=== PATIENT | male | born 1980 | race Caucasian/White ===

== ENCOUNTER → 2024-04-06 16:22 | Outpatient (REF) | payer BC, SELFPAY | LOC: RAD 16:22 | PROVIDERS: ATTENDING PHYSICIAN Surgery; FAMILY PHYSICIAN Nurse Practitioner | DX: K43.2 Incisional hernia without obstruction or gangrene (principal) | CPT/HCPCS: 74177; Q9967 ==

== ENCOUNTER 2024-04-29 06:35 | Day surgery (SDC) | payer BC, SELFPAY ==
[2024-04-29] VITALS (7 sets, daily range): BP systolic 109–142; BP diastolic 65–96; BMI 30.7
[2024-04-29] MEDS: TYLENOL 1000 MG PO (12:37)
[2024-04-29] MEDS: NORMOSOL-R/PLASMALYTE-A 1000 IV (12:59)
[2024-04-29] MEDS: VANCOCIN 530 MG IV (13:06)
--- NOTE | 2024-04-29 15:18 | W.IMMPOSTOP ---
Surgical Immed Post Op Note
-
Primary Surgeon: Lillie
Assisting: John GRIFFITHS; Elsy MULATNI
Pre-op Diagnosis: Umbilcal and ventral incisional hernias
Post-op Diagnosis: Ventral incisional hernia, incarcerated
Procedure Performed: Robot assisted laparoscopic repair of incarcerated ventral incisional hernia (rTAPP)
Anesthesia Type: GETA + TAP block
Specimen / Cultures: None
Estimated Blood Loss: 10cc
Complications: None immediate
Operative Findings: 4cm x 2cm defect with thin fascial bridge intervening; 13cm x 13cm bard soft mesh
--- NOTE | 2024-04-29 15:20 | OR.RPT ---
Operative Report
Operative Report
Primary Surgeon: Lillie
Assisting: John GRIFFITHS; Elsy MULTANI
Pre-op Diagnosis: Umbilical and ventral incisional hernias
Post-op Diagnosis: Ventral incisional hernia, incarcerated
Procedure Performed: Robot assisted laparoscopic repair of incarcerated ventral incisional hernia (rTAPP)
Anesthesia Type: GETA + TAP block
Specimen / Cultures: None
Estimated Blood Loss: 10cc
Complications: None immediate
Operative Findings: 4cm x 2cm defect with thin fascial bridge intervening; 13cm x 13cm bard soft mesh
Date of surgery: 04/29/24
Indications:� This 43M developed a symptomatic incarcerated ventral incisional hernia near his umbilicus. Robot assisted laparoscopic repair was planned.
Description of procedure:� The patient was taken to the operating room and positioned into supine position. The patient�s abdomen was prepped and draped in standard sterile fashion. A time-out was completed verifying correct patient, procedure,
site, positioning, and implants and special equipment prior to beginning this procedure.� The hernia was partially manually reduced after induction. A stab incision was made in the left upper quadrant, a Veress needle was inserted and proper
position was confirmed by aspiration and saline drop test. Following this, pneumoperitoneum was created with insufflation of carbon dioxide to 12 mmHg. Then a 8mm robotic trocar was inserted at the left anterior axillary line at the level of the
umbilicus. The laparoscope was inserted and no injuries were identified in the area. Under direct visualization, the initial trocar was exposed and two 8mm trocars were placed a hand's breadth above and below the initial trocar under direct
visualization.
Attention was turned to the umbilical defect. The peritoneum was incised several cm superior to the defect and a peritoneal flap was developed in transverse and caudad directions using blunt and sharp dissection and judicious electrocautery. The
defect was identified and measured as above. Incarcerated fatty contents were reduced. The defect was closed with 0 PDS stratafix suture. A 13cm x 13cm bard soft mesh was passed into the abdomen. It was placed against the underside of the abdominal
wall and secured in place with 2-0 vicryl sutures at all four corners. The flap was closed over the mesh and secured with 2-0 monocryl stratafix suture. A 14g angiocath was used to decompress the preperitoneal space. The flap sealed and suctioned
nicely up to the abdominal wall. The mesh did not fold nor curl. A transversus abdominis plane block was then performed under laparoscopic vision with marcaine/decadron.
After ensuring adequate hemostasis, the trocars were removed and the pneumoperitoneum allowed to escape. The trocar incisions were closed at the skin level using 4-0 monocryl and topical skin adhesive. All counts were correct and the patient
tolerated the procedure well and was taken to the postanesthesia care unit in stable condition.
The assistance of John GRIFFITHS was required due to the complexity of the procedure. During the procedure she assisted with retraction, resection, and closure of the wound.
[2024-04-29] MEDS: DILAUDID 0.5 MG IV (16:02)
[2024-04-29] MEDS: ROXICODONE 5 MG PO (17:02)
== END 2024-04-29 17:25 | disposition home or self-care (01) ==
LOC: SDS 06:35
PROVIDERS: ATTENDING PHYSICIAN Surgery
DX: K43.0 Incisional hernia with obstruction, without gangrene (principal)
CPT/HCPCS: 49594; C1781

== ENCOUNTER → 2025-02-16 09:33 | Outpatient (REF) | payer OTHER, SELFPAY | LOC: RAD 09:33 | PROVIDERS: ATTENDING PHYSICIAN Nurse Practitioner | DX: G44.82 Headache associated with sexual activity (principal) | CPT/HCPCS: 70450 ==